=== PATIENT | female | born 1935 | race Caucasian/White ===

== ENCOUNTER 2021-02-16 12:24 | Inpatient (IN) ==
[2021-02-16] MEDS ORDERED: 0.9 % Sodium Chloride 1,000 ML IVC ONE (15:26)
[2021-02-16] MEDS ORDERED: Isovue-370 500 ML BOTTLE IVP ONE (15:27)
[2021-02-16 16:21] LABS: Basophils # 0.1 K/mcL (0.0-0.2); Basophils % 0.4 %; Eosinophils % 0.2 %; Hematocrit 50.3 % (35.3-44.9); Immature Granulocytes % 0.4 % (0-4); Lymphocytes # 2.1 K/mcL (0.6-4.6); Lymphocytes % 18.9 %; Mean Corpuscular HGB Conc 31.8 g/dL (31.6-35.5); Mean Corpuscular Hemoglobin 30.3 pg (28.0-33.3); Mean Corpuscular Volume 95.3 fL (83.0-100.0); Mean Platelet Volume 10.6 fL (9.4-12.4); Monocytes # 0.8 K/mcL (0.0-1.3); Monocytes % 7.3 %; Neutrophils # 8.3 K/mcL (1.6-8.9); Platelet Count 261 K/mcL (140-400); Red Blood Count 5.28 M/mcL (3.82-4.97); Segmented Neutrophils % 72.8 %; White Blood Count 11.3 K/mcL (4.3-11.1)
[2021-02-16 16:23] LABS: Bacteria,Urine Few per hpf (None-Few); Bilirubin,Urine Negative (Negative); Blood,Urine Trace (Negative); Budding Yeast,Urine Moderate per hpf (None Seen); Clarity,Urine Turbid (Clear); Color,Urine Yellow (Yellow); Glucose,Urine (UA) Normal (Normal); Hyaline Casts,Urine Many per lpf (None Seen); Ketones,Urine Negative (Negative); Leukocyte Esterase,Urine Large (Negative); Mucus,Urine Few per lpf (None-Few); Nitrite,Urine Negative (Negative); PH,Urine 6.5 pH Units (5.0-8.0); Protein,Urine 50 mg/dL (Neg-Trace); Renal Epithelial Cells,Urine Few per hpf (None-Few); Specific Gravity,Urine 1.028 (1.010-1.025); Transitional Epi Cells,Urine Few per hpf (None-Few); WBC,Urine TNTC per hpf (0-3)
[2021-02-16 16:28] LABS: INR 1.3; Prothrombin Time 14.6 Seconds (9.4-12.1)
[2021-02-16 16:30] LABS: Activated Partial Thrombo Time 29.6 Seconds (26.0-36.0)
[2021-02-16 16:34] LABS: Alanine Aminotransferase 19 Units/L (7-52); Albumin 4.8 g/dL (3.5-5.7); Albumin/Globulin Ratio 1.7 (1.1-2.2); Alkaline Phosphatase 98 Units/L (34-104); Amylase 83 Units/L (29-103); Aspartate Amino Transferase 28 Units/L (13-39); BUN/Creatinine Ratio 19 (6-26); Bilirubin,Direct 0.2 mg/dL (0.0-0.2); Bilirubin,Indirect 0.9 mg/dL (0.0-1.0); Bilirubin,Total 1.1 mg/dL (0.3-1.0); Blood Urea Nitrogen 22 mg/dL (8-23); Calcium 10.1 mg/dL (8.6-10.3); Carbon Dioxide 29 mEq/L (23-29); Chloride 92 mEq/L (98-107); Globulin 2.9 g/dL (2.4-3.5); Glucose 113 mg/dL (70-105); Lipase 36 Units/L (11-82); Osmolality,Calculated 280 (280-300); Potassium 3.9 mEq/L (3.5-5.1); Sodium 133 mEq/L (136-145); Total Protein 7.7 g/dL (6.4-8.9); Troponin I < 0.03 ng/mL (< 0.04); eGFR For African Americans 54 (> 60); eGFR For Non-African Americans 44 (> 60)
[2021-02-16] MEDS ORDERED: Fluconazole 150 MG TABLET PO ONE (16:43)
[2021-02-16] MEDS ORDERED: cefTRIAXone 1,000 MG in Water for inj. (sterile) 10 ML IVP ONE (16:43)
[2021-02-16] MEDS ORDERED: Ondansetron 4 MG/2 ML VIAL IVP PRN (20:04)
[2021-02-16] MEDS ORDERED: Naloxone 0.4 MG/ML INJ IVP PRN (20:04)
[2021-02-16] MEDS ORDERED: 0.9 % Sodium Chloride 1,000 ML IVC SCH (20:15)
[2021-02-17 02:00] LABS: Mean Corpuscular HGB Conc 33.3 g/dL (31.6-35.5); Mean Corpuscular Hemoglobin 31.2 pg (28.0-33.3); Mean Corpuscular Volume 93.9 fL (83.0-100.0); Mean Platelet Volume 10.5 fL (9.4-12.4); Platelet Count 204 K/mcL (140-400); Red Blood Count 4.58 M/mcL (3.82-4.97); Red Cell Distribution Width 13.9 % (11.5-14.5); White Blood Count 10.1 K/mcL (4.3-11.1)
[2021-02-17 02:02] LABS: Hemoglobin 14.3 g/dL (11.5-15.4)
[2021-02-17 02:07] LABS: INR 1.3
[2021-02-17 02:09] LABS: Activated Partial Thrombo Time 28.3 Seconds (26.0-36.0)
[2021-02-17 02:21] LABS: BUN/Creatinine Ratio 23 (6-26); Blood Urea Nitrogen 22 mg/dL (8-23); Calcium 9.1 mg/dL (8.6-10.3); Carbon Dioxide 29 mEq/L (23-29); Chloride 96 mEq/L (98-107); Glucose 81 mg/dL (70-105); Osmolality,Calculated 282 (280-300); Potassium 3.8 mEq/L (3.5-5.1); Sodium 135 mEq/L (136-145); eGFR For African Americans > 60 (> 60); eGFR For Non-African Americans 56 (> 60)
[2021-02-17] MEDS ORDERED: D5% in 0.9% NACL 1,000 ML IVC SCH (05:45)
[2021-02-17] MEDS ORDERED: Lidocaine -MPF 4% 5 ML AMPUL ONE (07:42)
[2021-02-17] MEDS ORDERED: Lidocaine -MPF 2% 2 ML VIAL ONE (07:44)
[2021-02-17] MEDS ORDERED: *HR* Propofol 200 MG/20 ML VIAL IVP ONE (07:44)
[2021-02-17] MEDS ORDERED: *HR* Rocuronium Bromide 50 MG/5 ML VIAL ONE (07:44)
[2021-02-17] MEDS ORDERED: Ondansetron 4 MG/2 ML VIAL ONE (07:44)
[2021-02-17] MEDS ORDERED: *HR* FentaNYL (PF) 100 MCG/2 ML VIAL ONE (07:44)
[2021-02-17] MEDS ORDERED: Albumin Human 5% 12.5 GM/250 ML IV.SOLN ONE (07:52)
[2021-02-17] MEDS ORDERED: Acetaminophen IV 1,000 MG/100 ML BAG IVPB ONE ×2 (07:52→08:30)
[2021-02-17] MEDS ORDERED: *HR* Norepinephrine 4 MG/4 ML VIAL IVC ONE (07:52)
[2021-02-17] MEDS ORDERED: Bupivacaine 0.5%-Epi 1:200,000 50 ML VIAL ONE (08:24)
[2021-02-17] MEDS ORDERED: Albuterol 2.5 MG/3 ML NEBULIZER IH PRN ×2 (08:28→11:12)
[2021-02-17] MEDS ORDERED: Naloxone 0.4 MG/ML INJ IVP PRN ×3 (08:28→11:12)
[2021-02-17] MEDS ORDERED: Nitroglycerin 0.4 MG TAB.SUBL SL PRN ×2 (08:28→11:12)
[2021-02-17] MEDS ORDERED: *HR* HYDROmorphone (PF) 1 MG/ML SYRINGE IVP PRN ×2 (08:28→11:12)
[2021-02-17] MEDS ORDERED: *HR* FentaNYL (PF) 100 MCG/2 ML VIAL IVP PRN ×2 (08:28→11:12)
[2021-02-17] MEDS ORDERED: Ondansetron 4 MG/2 ML VIAL IVP PRN ×3 (08:28→11:12)
[2021-02-17] MEDS ORDERED: cefTRIAXone 1,000 MG in 0.9 % Sodium Chloride Mini Bag 100 ML IVPB SCH (09:00)
[2021-02-17] MEDS ORDERED: *HR* Metoprolol 5 MG/5 ML VIAL IVP ONE (09:23)
[2021-02-17] MEDS ORDERED: *HR* Labetalol 20 MG/4 ML SYRINGE IVP ONE (09:58)
[2021-02-17] MEDS ORDERED: Sugammadex Sodium 200 MG/2 ML VIAL IV ONE (10:07)
[2021-02-17] MEDS ORDERED: Isovue-370 500 ML BOTTLE IVP ONE (11:12)
[2021-02-17] MEDS ORDERED: Bisacodyl 10 MG RECTAL SUPPOSITORY RC ONE (13:30)
[2021-02-17] MEDS: D5% in 0.9% NACL 1,000 ML IVC SCH (15:06)
[2021-02-17] MEDS: *HR* Metoprolol 5 MG/5 ML VIAL IVP SCH (18:29)
[2021-02-18] MEDS: *HR* Metoprolol 5 MG/5 ML VIAL IVP SCH ×3 (00:20→12:07)
[2021-02-18 01:10] LABS: Hematocrit 39.1 % (35.3-44.9); Hemoglobin 12.7 g/dL (11.5-15.4); Mean Corpuscular HGB Conc 32.5 g/dL (31.6-35.5); Mean Corpuscular Hemoglobin 30.8 pg (28.0-33.3); Mean Corpuscular Volume 94.7 fL (83.0-100.0); Mean Platelet Volume 10.5 fL (9.4-12.4); Platelet Count 175 K/mcL (140-400); Red Blood Count 4.13 M/mcL (3.82-4.97); Red Cell Distribution Width 14.2 % (11.5-14.5); White Blood Count 12.7 K/mcL (4.3-11.1)
[2021-02-18 01:33] LABS: BUN/Creatinine Ratio 20 (6-26); Blood Urea Nitrogen 15 mg/dL (8-23); Calcium 8.3 mg/dL (8.6-10.3); Carbon Dioxide 24 mEq/L (23-29); Chloride 103 mEq/L (98-107); Glucose 139 mg/dL (70-105); Osmolality,Calculated 283 (280-300); Potassium 4.2 mEq/L (3.5-5.1); Sodium 135 mEq/L (136-145); eGFR For African Americans > 60 (> 60); eGFR For Non-African Americans > 60 (> 60)
[2021-02-18] MEDS: D5% in 0.9% NACL 1,000 ML IVC SCH ×4 (03:32→20:56)
[2021-02-18] MEDS: cefTRIAXone 1,000 MG in 0.9 % Sodium Chloride Mini Bag 100 ML IVPB SCH (08:02)
[2021-02-18] MEDS ORDERED: Levothyroxine Sodium 100 MCG VIAL IVP SCH (14:00)
[2021-02-18] MEDS: DilTIAZem CD (24hr) 120 MG CAP.ER.24H PO SCH (14:20)
[2021-02-18] MEDS: Apixaban 2.5 MG TABLET PO SCH (20:47)
[2021-02-19 06:01] LABS: Hematocrit 38.8 % (35.3-44.9); Hemoglobin 12.4 g/dL (11.5-15.4); Mean Corpuscular Hemoglobin 31.1 pg (28.0-33.3); Mean Corpuscular Volume 97.2 fL (83.0-100.0); Mean Platelet Volume 10.8 fL (9.4-12.4); Platelet Count 168 K/mcL (140-400); Red Blood Count 3.99 M/mcL (3.82-4.97); Red Cell Distribution Width 14.6 % (11.5-14.5); White Blood Count 7.1 K/mcL (4.3-11.1)
[2021-02-19 06:20] LABS: BUN/Creatinine Ratio 9 (6-26); Blood Urea Nitrogen 6 mg/dL (8-23); Calcium 8.1 mg/dL (8.6-10.3); Carbon Dioxide 28 mEq/L (23-29); Chloride 108 mEq/L (98-107); Glucose 95 mg/dL (70-105); Osmolality,Calculated 287 (280-300); Potassium 3.6 mEq/L (3.5-5.1); Sodium 140 mEq/L (136-145); eGFR For African Americans > 60 (> 60); eGFR For Non-African Americans > 60 (> 60)
[2021-02-19] MEDS ORDERED: Loratadine 10 MG TABLET PO SCH (09:00)
[2021-02-19] MEDS ORDERED: Cholecalciferol (D-3) 1,000 UNIT (25MCG) TABLET PO SCH (09:00)
[2021-02-19] MEDS: cefTRIAXone 1,000 MG in 0.9 % Sodium Chloride Mini Bag 100 ML IVPB SCH (10:41)
[2021-02-19] MEDS: DilTIAZem CD (24hr) 120 MG CAP.ER.24H PO SCH (10:42)
[2021-02-19] MEDS: Apixaban 2.5 MG TABLET PO SCH (10:42)
[2021-02-19] MEDS: D5% in 0.9% NACL 1,000 ML IVC SCH (12:38)
[2021-02-19 15:38] VITALS: BP 99/62; PULSE 64; TEMP 98.1; O2SAT 93
== END 2021-02-19 17:11 | disposition home or self-care (01) | DRG 345 ==
LOC: 3ANU 12:24 → EMEROOARM 12:24 → SUATTDRO 20:16 → 3ANU 20:17
PROVIDERS: ADMIT Internal Medicine; ATTEND Internal Medicine